=== PATIENT | female | born 1960 | race Caucasian/White ===

== ENCOUNTER → 2017-09-25 | Outpatient (CLI) | payer OTHER ==
[~2017-09-25] MED LIST: AVELOX400 MG PO; Antivert PO; CRESTOR10 MG PO; Fish Oil PO; INDERAL20 M1 PO; Medrol Dosepak PO; PRAVACHOL10 MG PO
== END | disposition home or self-care (01) ==
LOC: EEG 09:00
DX: R42 Dizziness and giddiness (principal)
CPT/HCPCS: 95954